=== PATIENT | female | born 1985 | race Two or more races ===

== ENCOUNTER 2017-11-03 10:06 | Day surgery (SDC) | payer BC ==
[2017-11-02 08:39] LABS: BASOPHILS # (AUTO) 0.02 x10^3/uL (0-0.1); BASOPHILS % (AUTO) 0 % (0-1); EOSINOPHILS # (AUTO) 0.15 x10^3/uL (0-0.4); EOSINOPHILS % (AUTO) 2 % (1-7); LYMPHOCYTES % (AUTO) 30 % (22-44); MD NO; MEAN CORPUSCULAR HEMOGLOBIN 27.1 pg (27.0-34.8); MEAN CORPUSCULAR HGB CONC 32.6 g/dL (32.4-35.8); MEAN PLATELET VOLUME 9.2 fL (7.4-10.4); MONOCYTES # (AUTO) 0.61 x10^3/uL (0.2-0.8); MONOCYTES % (AUTO) 9 % (2-9); NEUTROPHILS # (AUTO) 3.88 x10^3/uL (1.8-6.8); NEUTROPHILS % (AUTO) 58 % (42-75); PLATELET COUNT 333 x10^3/uL (130-400); RED BLOOD COUNT 4.45 x10^6/uL (3.82-5.3); RED CELL DISTRIBUTION WIDTH 15.8 % (9.6-15.2)
[~2017-11-03] VITALS: Ht 157.5 cm; Wt 63.6 kg
[~2017-11-03 10:06] MED LIST: FERR325T16 PO; IBUP-1222 PO; MULT-124 PO; OXYC-302 PO; PREN1TAB52 PO; SENN-52 PO
[2017-11-03 10:27] VITALS: BP 104/68
[2017-11-03] MEDS ORDERED: FENTANYL PF 250 MCG/5ML ONE (10:52)
[2017-11-03] MEDS ORDERED: MIDAZOLAM 1 MG/ML, 2ML ONE (10:52)
[2017-11-03] MEDS ORDERED: PROPOFOL 10 MG/ML, 20ML ONE (10:55)
[2017-11-03] MEDS ORDERED: ROCURONIUM 10 MG/ML,10ML ONE (10:55)
[2017-11-03] MEDS ORDERED: GLYCOPYRROLATE 0.4 MG/2 ML, 2ML ONE ×2 (10:56→12:20)
[2017-11-03] MEDS ORDERED: NEOSTIGMINE 1 MG/ML, 10ML ONE (10:56)
[2017-11-03] MEDS ORDERED: CEFAZOLIN 1,000 MG ONE ×2 (10:57)
[2017-11-03] MEDS ORDERED: SODIUM CHLORIDE 0.9% PF 10ML ONE (10:57)
[2017-11-03] MEDS ORDERED: DEXAMETHASONE 4 MG/ML, 1ML ONE ×2 (10:58)
[2017-11-03] MEDS ORDERED: ONDANSETRON 2MG/ML, 2ML ONE (10:58)
[2017-11-03] MEDS ORDERED: FLU VACC QS2017-18 (36MOS+) UP/PF 0.5 ML IM-VACC ONE (11:30)
[2017-11-03] MEDS ORDERED: SILVER NITRATE STICK TP ONE ×2 (11:39→12:29)
[2017-11-03] MEDS ORDERED: BUPIVACAINE/PF 0.25% ONE (11:39)
[2017-11-03] MEDS ORDERED: EPINEPHRINE 1 MG/ML, 1ML ONE (11:39)
[2017-11-03] MEDS ORDERED: KETOROLAC 30 MG/1 ML ONE (11:57)
[2017-11-03] MEDS ORDERED: morphine SULFATE 10 MG/ML, 1ML IV PRN (12:00)
[2017-11-03] MEDS ORDERED: MEPERIDINE/PF 25MG/0.5ML IVPush PRN (12:00)
[2017-11-03] MEDS ORDERED: HYDROmorphone 1 MG/ML, 1ML IV PRN (12:00)
[2017-11-03] MEDS ORDERED: PROMETHAZINE 25 MG/ML, 1ML IV PRN (12:00)
[2017-11-03] MEDS ORDERED: ONDANSETRON 2MG/ML, 2ML IVPush PRN (12:00)
[2017-11-03] MEDS ORDERED: FENTANYL PF 100 MCG/2ML IV PRN (12:00)
[2017-11-03] MEDS ORDERED: PROMETHAZINE 12.5 MG SUPP PR PRN (12:00)
[2017-11-03] MEDS ORDERED: ACETAMINOPHEN 325 MG TABLET PO PRN (12:00)
[2017-11-03] MEDS ORDERED: OXYcodone 5 MG/5 ML ORAL.SOL UDC PO PRN (12:00)
[2017-11-03] MEDS ORDERED: BUPIVACAINE/PF-EPI 0.25% 1:200K INFIL ONE (12:15)
[2017-11-03] MEDS ORDERED: OXYcodone 5 MG/5 ML ORAL.SOL UDC ONE (12:44)
[2017-11-03] MEDS ORDERED: ACETAMINOPHEN 650 MG/20.3 ML UDC ONE (12:45)
[2017-11-03] MEDS ORDERED: IBUP200T49 PO (14:31)
[2017-11-03] MEDS ORDERED: OXYC-302 PO (14:31)
[2017-11-03] MEDS ORDERED: DOCU-131 PO (14:32)
== END 2017-11-03 14:40 | disposition home or self-care (01) ==
LOC: 4NOR 10:06 → OR 10:06 → MERGE 12:00 → OR 14:40
PROVIDERS: ATTEND Obstetrics & Gynecology
DX: Z30.2 Encounter for sterilization (principal)
CPT/HCPCS: 36415; 58670; 84703; 85025; 88302; J0171; J0690; J1100; J1885; J2250; J2405; J2704; J2710; J3010; J3490